=== PATIENT | male | born 1955 | race Caucasian/White ===

== ENCOUNTER 2017-09-08 09:35 | Outpatient (CLI) | payer MEDICARE, OTHER ==
[2014-01-23 09:39] VITALS: BP 124/63
== END 2017-09-08 09:36 ==
LOC: OUT 09:35
PROVIDERS: ATTEND Colon & Rectal Surgery
DX: R10.84 Generalized abdominal pain (principal); K59.00 Constipation, unspecified; R11.0 Nausea; Z86.010 Personal history of colon polyps
CPT/HCPCS: G0463

== ENCOUNTER 2017-10-06 07:11 | Day surgery (SDC) | payer MEDICARE, OTHER ==
[2014-01-23 09:39] VITALS: BP 124/63
[2017-10-06] MEDS ORDERED: LIDOCAINE HCL/PF 2% 100 MG/5 ML VIAL IJ ONE (08:00)
[2017-10-06] MEDS ORDERED: PROPOFOL 500 MG/50 ML VIAL IV ONE (08:00)
[2017-10-06] MEDS ORDERED: LACTATED RINGERS 1,000 ML IV.SOLN IV ONE (08:00)
[2017-10-06] MEDS ORDERED: SALINE FLUSH 10 ML DISP.SYRIN IVF ONE (08:00)
--- NOTE | 2017-10-06 14:27 | Operative Note ---
SURGEON: Alejo Mason MD ANESTHESIA: MAC anesthesia. ESTIMATED BLOOD LOSS: None. COMPLICATIONS: None. PREOPERATIVE DIAGNOSES: 1. Abdominal pain. 2. History of colon polyps. POSTOPERATIVE DIAGNOSIS: Internal hemorrhoids, otherwise, normal colonoscopy. PROCEDURE PERFORMED: Colonoscopy. INDICATIONS FOR THE PROCEDURE: This is a 62-year-old man who has a history of colon polyps. He has recently been having increasing abdominal pain and change in bowel habits. DESCRIPTION OF PROCEDURE: Patient was brought to the endoscopy suite and placed in the left lateral decubitus position. A rectal exam was performed. There were no masses. The colonoscope was inserted and passed easily to the cecum. The appendiceal orifice was identified. The terminal ileum was intubated and was normal. The colonoscope was slowly retracted. A greater than 6-minute withdrawal time was done. There were no polyps or other lesions seen. In the rectum, there were some small to moderate internal hemorrhoids. There were no other findings. The colonoscope was removed. The patient tolerated the procedure well. FINDINGS: Normal colonoscopy to the terminal ileum except for some small to moderate internal hemorrhoids. RECOMMENDATIONS: I recommend a repeat colonoscopy in 5 years. cc: Dr. Yaquelin ANAYA
== END 2017-10-06 07:12 ==
LOC: OPSURG 07:11
PROVIDERS: ATTEND Colon & Rectal Surgery
DX: K64.8 Other hemorrhoids (principal); R10.84 Generalized abdominal pain; K59.00 Constipation, unspecified; R11.0 Nausea; Z86.010 Personal history of colon polyps
CPT/HCPCS: J2001; J2704; J7120; 45378; S1016

== ENCOUNTER 2017-10-20 09:57 | Outpatient (CLI) | payer MEDICARE, OTHER ==
[2014-01-23 09:39] VITALS: BP 124/63
[2017-10-20 10:52] LABS: eGFR (African) > 60; eGFR (Non-African) > 60
== END 2017-10-20 10:00 ==
LOC: LAB 09:57
PROVIDERS: ATTEND Family Medicine
DX: R10.30 Lower abdominal pain, unspecified (principal)
CPT/HCPCS: 36415; 80048

== ENCOUNTER 2017-10-21 09:28 | Outpatient (CLI) | payer MEDICARE, OTHER ==
[2014-01-23 09:39] VITALS: BP 124/63
--- NOTE | 2017-10-21 12:27 | Diagnostic Imaging Report ---
CECILIO ALBERT [facility] [address] [facility] [address] [place], [place]. [address] Report Submission Date: Oct 21, 2017 11:37:37 AM WEB PRODUCTION MANAGER Patient Study Name: PETR VELAZQUEZ Date: Oct 21, 2017 10:08:31 AM WEB PRODUCTION MANAGER Modality Type: CT\SR Gender: M Description: CT ABD & PELVIS W/CONTRAST : 55 Institution: [facility] Physician: CECILIO ALBERT Examination: CT Abdomen/pelvis History: Left abdominal discomfort Comparison exams: None available Technique: CT Abdomen/pelvis with IV protocol. Findings: Liver demonstrates diffuse low attenuation. No central lesion. Spleen , adrenals, pancreas, and kidneys are without gross irregularity. No abnormal enhancement. Gallstone layering within the dependent margin of the gallbladder. No suspicious renal cortical calcifications. Ureters are nondilated in their course through the abdomen and pelvis. No central calcifications. Bladder margin within normal limits. Abdominal aorta without aneurysm. Cardiac silhouette is not enlarged. No pericardial effusion. No abnormal small bowel dilation. Stool within the large bowel limiting sensitivity. No mesenteric inflammatory changes or free fluid. Few scattered sigmoid diverticula. No adjacent mesenteric inflammatory changes are fluid. No inguinal hernia. Osseous structures demonstrate degenerative changes. Lung bases demonstrate parenchymal scarring and atelectasis. No effusion. Impression: No abdominal mass or acute appearing inflammatory process. Sigmoid diverticulosis. No evidence for acute diverticulitis. Stool throughout the large bowel suggesting constipation. Gallstone. No adjacent pericholecystic inflammation. Fatty liver. No evidence for renal calcification or abnormal ureteric dilation. Lung base scarring and mild linear infiltrates/atelectasis. No effusion. Electronically signed on Oct 21, 2017 11:37:37 AM WEB PRODUCTION MANAGER by: Carlo ANAYA
== END 2017-10-21 09:35 ==
LOC: RAD 09:28
PROVIDERS: ATTEND Family Medicine
DX: R10.30 Lower abdominal pain, unspecified (principal)
CPT/HCPCS: 74177; Q9967

== ENCOUNTER 2017-11-14 09:20 | Outpatient (CLI) | payer MEDICARE, OTHER ==
[2014-01-23 09:39] VITALS: BP 124/63
[2017-11-14 09:39] LABS: BASOPHILS % 0.9 (0.0-1.5); EOSINOPHILS % 4.7 % (0.0-6.8); MEAN CORPUSCULAR HEMOGLOBIN 32.5 pg (28.0-34.0); MEAN CORPUSCULAR VOLUME 87.9 fl (80.0-100.0); NEUTROPHILS # 3.9 # k/uL (1.4-7.7)
--- NOTE | 2017-11-14 14:00 | Diagnostic Imaging Report ---
CECILIO ALBERT [facility] [address] [facility] [address] [address] Report Submission Date: Nov 14, 2017 11:07:31 AM OUTSIDE RIGGER Patient Study Name: PETR VELAZQUEZ Date: Nov 14, 2017 9:33:26 AM OUTSIDE RIGGER Modality Type: CR Gender: M Description: ABDOMEN : 55 Institution: [facility] Physician: CECILIO ALBERT Examination: Obstruction series History: Abdominal discomfort Findings: 4 views obtained of the abdomen. No abnormal dilation of the large or small bowel. Moderate amount of stool throughout the large bowel. No suspicious calcification projecting over the renal fossa or the lower pelvic region. Osseous structures are appropriate for age. Impression: Moderate amount of large bowel stool. No obstruction. No suspicious calcifications by plain film sensitivity. Electronically signed on Nov 14, 2017 11:07:31 AM OUTSIDE RIGGER by: Carlo ANAYA
[2017-11-14 15:10] LABS: eGFR (African) > 60; eGFR (Non-African) > 60
== END 2017-11-14 09:30 ==
LOC: LAB 09:20
PROVIDERS: ATTEND Family Medicine
DX: R10.84 Generalized abdominal pain (principal)
CPT/HCPCS: 36415; 74000; 80053; 85025